=== PATIENT | male | born 1965 | race Caucasian/White ===

== ENCOUNTER 2018-08-28 20:14 | Emergency (ER) | payer OTHER ==
[2018-08-28 20:36] VITALS: BP 160/89; PULSE 97; TEMP 99.4; BMI 34.9
--- NOTE | 2018-08-28 20:37 | PDOC ---
Rapid Medical Evaluation Time Seen by Provider: 08/28/18 20:33 Medical Evaluation: Allergies Allergy/AdvReac Type Severity Reaction Status Date / Time No Known Allergies Allergy Verified 04/26/12 10:40 08/28/18 20:33 pt c/o: low back pain after sudden movement 5 days ago, took tylenol with minimal relief pt on brief exam: on bp meds, took meds this am, 2 months ago wnl w/ dr visit, no cva tenderness Pt ordered: none Pt to proceed to the ED
--- NOTE | 2018-08-28 21:41 | PDOC ---
History of Present Illness - General Chief Complaint: Back Pain Stated Complaint: BACK PAIN Time Seen by Provider: 08/28/18 20:33 - History of Present Illness Initial Comments: 08/28/18 21:37 53-year-old male with a past medical history significant for polio, hypertension and diabetes presents for evaluation of a medical onset of lower back pain for the last 2 weeks without radicular symptoms. No loss of bowel bladder function. No other associated symptoms. Past History - Past Medical History Allergies/Adverse Reactions: Allergies Allergy/AdvReac Type Severity Reaction Status Date / Time No Known Allergies Allergy Verified 08/28/18 20:36 Home Medications: Ambulatory Orders Cyclobenzaprine HCl [Flexeril 10 mg] 10 mg PO HS PRN #10 tablet 08/28/18 Metoprolol Tartrate 25 mg PO ASDIR 08/28/18 COPD: No - Suicide/Smoking/Psychosocial Hx Smoking Status: No Smoking History: Never smoked Number of Cigarettes Smoked Daily: 0 Review of Systems - Review of Systems Musculoskeletal: Yes: Back Pain All Other Systems: Reviewed and Negative *Physical Exam - Vital Signs Last Vital Signs Temp Pulse Resp BP Pulse Ox 99.4 F 97 H 18 160/89 98 08/28/18 20:32 08/28/18 20:32 08/28/18 20:32 08/28/18 20:32 08/28/18 20:32 - Physical Exam Comments: There is a maculopapular raised wheal rash on the lumbar spine area. There is moderate paralumbar musculature spasm and tenderness. There is weakness in bilateral ankles quadriceps and hip flexors secondary to polio. This is long- standing and not new. Thighs and calves are soft and nontender there are no gross sensory deficits negative straight leg raise test lumbar spine range of motion is decreased 08/28/18 21:38 Medical Decision Making - Medical Decision Making Given the hypertension and diabetes I will forego a Medrol Dosepak and anti- inflammatories and treat him with Flexeril and instructed in on the home use of Tylenol follow-up with spine surgery as well. 08/28/18 21:38 *DC/Admit/Observation/Transfer Diagnosis at time of Disposition: Back pain, Contact dermatitis - Discharge Dispostion Disposition: HOME Condition at time of disposition: Stable Decision to Admit order: No - Referrals Referrals: Shelton Hunter [Primary Care Provider] - Hua Garcias MD [Staff Physician] - - Patient Instructions Printed Discharge Instructions: Low Back Pain, DI for Low Back Pain, Contact Dermatitis, DI for Contact Dermatitis Additional Instructions: Avoid the use of the BenGay, it's getting a rash on the lower back. Return to the emergency room should symptoms worsen or go unresolved. Please take 1 thousand milligrams of Tylenol every 8 hours for pain in addition to your regular scheduled medicine. Return to the emergency room should symptoms worsen or go unresolved and follow-up with spine surgery in 2-3 days for further evaluation and treatment options. The muscle relaxer have prescribed he will make you sleepy it's one tablet before bedtime. - Post Discharge Activity
== END 2018-08-28 21:48 | disposition home or self-care (01) ==
LOC: JERFT 20:14
DX: M54.5 Low back pain (principal); L25.9 Unspecified contact dermatitis, unspecified cause; I10 Essential (primary) hypertension; E11.9 Type 2 diabetes mellitus without complications; Z86.12 Personal history of poliomyelitis
CPT/HCPCS: 99281-25